=== PATIENT | male | born 1955 | race Caucasian/White ===

== ENCOUNTER 2022-01-10 07:17 | Day surgery (SDC) | payer MEDICARE, OTHER ==
[2022-01-03 14:13] LABS: BASOPHILS # (AUTO) 0.1 X10'3 (0-0.2); BASOPHILS % (AUTO) 0.9 % (0-1); EOSINOPHILS # (AUTO) 0.1 X10'3 (0-0.9); LYMPHOCYTES # (AUTO) 2.5 X10'3 (1.1-4.8); LYMPHOCYTES % (AUTO) 26.6 % (21-51); MEAN CORPUSCULAR HEMOGLOBIN 31.1 PG (27.0-31.0); MEAN CORPUSCULAR HGB CONC 34.3 g/dL (33.0-36.5); MEAN CORPUSCULAR VOLUME 90.4 FL (78-98); MEAN PLATELET VOLUME 8.8 FL (7.4-10.4); NEUTROPHILS # (AUTO) 5.9 X10'3 (1.8-7.7); NEUTROPHILS % (AUTO) 61.5 % (42-75); PRE OP HEMATOCRIT 43.7 % (42.0-52.0); PRE OP PLATELET COUNT 168 X10'3 (140-440); RED BLOOD COUNT 4.83 X10'6 (4.70-6.10)
[2022-01-03 14:34] LABS: ALBUMIN 3.7 G/DL (3.4-5.0); ALKALINE PHOSPHATASE 79 IU/L (46-116); BLOOD UREA NITROGEN 13 MG/DL (7-18); BUN/CREATININE RATIO 16.9 (5.4-32.0); CALCIUM 9.2 MG/DL (8.5-10.1); CHLORIDE 101 MMOL/L (99-107); CREATININE 0.77 MG/DL (0.60-1.10); PRE OP ALT 39 U/L (30-65); PRE OP ANION GAP 9 (8-16); PRE OP AST 32 U/L (10-37); PRE OP BILIRUB, TOTAL 0.6 MG/DL (0.0-1.0); PRE OP GLUCOSE 76 MG/DL (70-104); PRE OP POTASSIUM 3.4 MMOL/L (3.4-5.1); PRE OP SODIUM 139 MMOL/L (135-145); TOTAL PROTEIN 7.5 G/DL (6.4-8.2); eGFR > 90 ML/MIN
[~2022-01-10] VITALS: Ht 185.4 cm; Wt 96.6 kg
[2022-01-10] VITALS (7 sets, daily range): BP systolic 115–133; BP diastolic 61–74
[~2022-01-10 07:17] MED LIST: CELE100C98 PO; CHLO25TA10 PO; DOXY25TA58 PO; GABA300C PO; GEMF600T89 PO; LOSA25TA41 PO; ceFAZolin inj. 2,000 MG in dextrose 5%-water 100 ML IV ONE; famotidine 20mg tablet PO ONE; ringers solution, lacted 1,000 ML IV SCH
[2022-01-10] MEDS ORDERED: BUPIVAcaine/PF 2.5 mg/ml (0.25%) 30ml vial ONE (07:22)
[2022-01-10] MEDS ORDERED: LIDOcaine 0.5% (5mg/ml) 50ml vial ONE (07:22)
[2022-01-10] MEDS ORDERED: LIDOcaine 1% 30ml preserv. free vial ONE (07:35)
[2022-01-10] MEDS ORDERED: fentaNYL/PF 50MCG/1 ML 2ML syringe ONE (11:11)
[2022-01-10] MEDS ORDERED: MIDAZolam 1 MG/ML 5ML VIAL ONE (11:11)
[2022-01-10] MEDS ORDERED: ROPIVAcaine 0.5% (5mg/ml) 30ml vial ONE (11:11)
[2022-01-10] MEDS ORDERED: LIDOcaine 1%/PF 5ML 10 MG/ML VIAL ONE (11:32)
[2022-01-10] MEDS ORDERED: LIDOcaine 2% (20mg/ml) 5ml vial ONE (11:32)
[2022-01-10] MEDS ORDERED: morphine 2 MG/ML inj. syringe IV PRN (12:00)
[2022-01-10] MEDS ORDERED: proCHLORperazine 10 MG/2 ml inj IV PRN (12:00)
[2022-01-10] MEDS ORDERED: morphine 4 MG/ML inj SYRINge IV PRN (12:00)
[2022-01-10] MEDS ORDERED: ondansetron/PF 4mg/2ml inj IV PRN (12:00)
[2022-01-10] MEDS ORDERED: meperidine/PF 25mg/ml syringe IV PRN ×3 (12:00)
[2022-01-10] MEDS ORDERED: ringers solution, lacted 1,000 ML IV SCH (12:00)
--- NOTE | 2022-01-10 13:20 | NUR ---
Received from OR via [facility], accompanied by Anesthesiologist-DR. DORANTES RPORT GIVEN, PATIENT AWAKE, NO S/S OF PAIN, V/S WNL, SCD ON, 20G TO LUE, RIGHT WRIST DRESSING CDI W/ SLING. ICE AND ELEVATED RUE-AXILLARY BLOCK PLACED-WORKING WELL, PT DENIES ANY PAIN, NO FEELING TO RIGHT HAND/FINGERS BUT PINK/WARM WITH +CAP REFILL.
--- NOTE | 2022-01-10 14:10 | NUR ---
PT UP GETTING DRESSED WITH WIFES HELP-RIGHT ARM BLOCKED, IN SLING FOR PROTECTION, DRSG-CDI, FINGERS-PINK/WARM/+CAP REFILL, PIV D/CD-SEE DOCUMENTATION, PT HAS NO HOME PAIN MEDS ORDERED-LEFT MSG WITH DR.S NORMAN AND ALSO TEXTED DR DIRECTLY, PT NOT IN PAIN CURRENTLY D/T BLOCK-BUT INSTRUCTED PT AND TO REACH OUT TO OFFICE FOR PAIN MEDS BEFORE WEEKEND. VSS, D/C INSTRUCTIONS GIVEN TO PT AND -ALL QUESTIONS ANSWERED, PT TAKEN VIA W/C WITH ALL BELONGINGS TO VEHICLE FOR TRANSPORT HOME
== END 2022-01-10 14:10 | disposition home or self-care (01) ==
LOC: PAS 07:17
PROVIDERS: ATTEND Orthopaedic Surgery Hand Surgery
DX: M19.032 Primary osteoarthritis, left wrist (principal); M18.12 Unilateral primary osteoarthritis of first carpometacarpal joint, left hand; I44.0 Atrioventricular block, first degree; I45.89 Other specified conduction disorders; I10 Essential (primary) hypertension; Z96.653 Presence of artificial knee joint, bilateral; Z98.890 Other specified postprocedural states; Z87.891 Personal history of nicotine dependence; Z79.1 Long term (current) use of non-steroidal anti-inflammatories (NSAID); Z79.899 Other long term (current) drug therapy; G89.18 Other acute postprocedural pain; Z72.89 Other problems related to lifestyle
CPT/HCPCS: 25312; 25447; 25820; 36415; 64447; 76942; 80053; 82948; 85025; 93005; C1713; J0690; J2250; J2795; J3010; J3490; J7030; J7060; J7120; Z7506; Z7508; Z7512; A4215; A4565; A4618; A7000